=== PATIENT | female | born 1940 | race Caucasian/White ===

== ENCOUNTER → 2018-03-07 13:41 | Outpatient (CLI) | payer MEDICARE, SELFPAY | PROVIDERS: PCP Family Medicine; Visit Provider Family Medicine | DX: Z13.820 Encounter for screening for osteoporosis (principal); Z78.0 Asymptomatic menopausal state; Z82.62 Family history of osteoporosis; M06.9 Rheumatoid arthritis, unspecified | CPT/HCPCS: 77080 ==

== ENCOUNTER → 2019-07-04 10:35 | Outpatient (CLI) | payer MEDICARE, SELFPAY ==
--- NOTE | 2019-07-04 | DI.RAD.S_ITS ---
PROCEDURE: XR CHEST 2V INDICATIONS: COUGH TECHNIQUE: 2 views of the chest were acquired. COMPARISON: [facility], , CHEST 2 VIEW, 10/02/2013, 11:29. FINDINGS: Surgical changes and devices: None. Lungs and pleura: There is a poor thickening along the right lower hemithorax. There is a 7 mm nodule in the left midlung zone. No pleural effusions or pneumothorax. Mediastinum: Mediastinal contours are normal. Heart size is normal. Bones and chest wall: No suspicious bony abnormalities. Soft tissues appear unremarkable. IMPRESSION: 1. No acute cardiopulmonary disease. 2. Pleural thickening in the right lower hemithorax. 3. A 7 mm nodular density in the left midlung zone. A followup chest CT is suggested for further evaluation. Dictated by: Nelly Patel M.D. on 07/04/2019 at 11:19 Approved by: Nelly Patel M.D. on 07/04/2019 at 11:22
== END ==
PROVIDERS: PCP Family Medicine; Referring Provider Family Medicine; Visit Provider Family Medicine
DX: R05 Cough (principal); K21.9 Gastro-esophageal reflux disease without esophagitis; R91.1 Solitary pulmonary nodule
CPT/HCPCS: 71046

== ENCOUNTER → 2019-12-17 12:02 | Outpatient (CLI) | payer MEDICARE, SELFPAY ==
--- NOTE | 2019-12-17 | DI.CT.S_ITS ---
PROCEDURE: CT CHEST WO CON INDICATIONS: Pulmonary nodule seen on chest x-ray TECHNIQUE: Noncontrast 5 mm thick sections acquired from the pulmonary apices to the posterior costophrenic angles. 1 mm lung window, 5 mm thick coronal and sagittal and 7 mm axial MIP reformats were then acquired. For radiation dose reduction, the following was used: automated exposure control, adjustment of mA and/or kV according to patient size. COMPARISON: [facility], CR, XR CHEST 2V, 07/04/2019, 10:43. [facility], CT, CT ABDOMEN HEPATIC/ADRENAL PROTOCOL, 07/09/2019, 16:14. FINDINGS: Image quality: Excellent. Lungs and pleura: There are areas of lucency is in the left upper lobe and lower lobes. No acute air space opacities. There are multiple calcified pleural plaques bilaterally. No pleural effusions or pneumothorax. Central and peripheral airways are patent and normal in caliber. Mediastinum: Heart size is normal. No pericardial effusion. No mediastinal adenopathy by size criteria. Thoracic aorta and central pulmonary arteries are normal in size. Esophagus is normal in caliber. No hiatal hernia. Bones and chest wall: No suspicious bony lesions. No vertebral body compression fractures. No axillary or supraclavicular adenopathy by size criteria. Thyroid gland is normal . Abdomen: There are multiple hepatic cysts. The largest cyst is in the left hepatic lobe measuring 7 cm. Visualized upper abdominal solid organs and bowel loops appear normal in the absence of contrast. IMPRESSION: 1. No suspicious nodules are identified. The nodular density seen on chest x-ray may be caused by calcified pleural plaques. 2. Calcified pleural plaques bilaterally. Recommend correlation for asbestos exposure. 3. Lucencies are present in lungs bilaterally consistent with air trapping which is likely secondary to small airway disease. 4. Multiple hepatic cysts. Dictated by: Nelly Patel M.D. on 12/17/2019 at 16:27 Approved by: Nelly Patel M.D. on 12/17/2019 at 18:20
== END ==
PROVIDERS: PCP Family Medicine; Referring Provider Family Medicine; Visit Provider Family Medicine
DX: R91.1 Solitary pulmonary nodule (principal); J92.9 Pleural plaque without asbestos
CPT/HCPCS: 71250

== ENCOUNTER 2020-05-25 18:11 | Emergency (ER) | payer MEDICARE, SELFPAY ==
[2020-05-25] VITALS (12 sets, daily range): BP systolic 175–217; BP diastolic 85–106; PULSE 68–96; RESP 12–22; TEMP 36.3; O2SAT 92–97
--- NOTE | 2020-05-25 18:33 | DI.RAD.S_ITS ---
PROCEDURE: XR CHEST 1V INDICATIONS: chest pain TECHNIQUE: One view of the chest was acquired. COMPARISON: [facility], CR, XR CHEST 2V, 07/04/2019, 10:43. [facility], CR, CHEST 2 VIEW, 10/02/2013, 11:29. FINDINGS: Surgical changes and devices: None. Lungs and pleura: Lungs are again seen to be abnormal with a mild chronic interstitial prominence. No pleural effusions or pneumothorax. Mediastinum: Mediastinal contours appear normal. Heart size is normal considering reduced inspiration. Bones and chest wall: No suspicious bony lesions. Overlying soft tissues appear unremarkable. IMPRESSION: Mild interstitial prominence and reduced inspiratory volume, a definite source of chest pain is not seen. Dictated by: Akin Herrera M.D. on 05/25/2020 at 19:11 Approved by: Akin Herrera M.D. on 05/25/2020 at 19:11
[2020-05-25 19:00] LABS: Add Manual Diff / Slide Review NO; Basophils Absolute Auto 0 /uL (0-100); Basophils Percent Auto 0.6 % (0-2); Eosinophils Absolute Auto 100 /uL (0-450); Eosinophils Percent Auto 0.7 % (2-4); Hematocrit 43.4 % (36-46); Hemoglobin 14.8 g/dL (12.0-16.0); Lymphocytes Absolute Auto 1500 /uL (1100-4500); Lymphocytes Percent Auto 17.9 % (25-40); Mean Corpuscular HGB Conc 34.2 % (30-36); Mean Corpuscular Hemoglobin 34.1 PG (26-34); Mean Corpuscular Volume 99.9 fL (80-100); Monocytes Absolute Auto 1100 /uL (0-900); Monocytes Percent Auto 12.8 % (3-14); Neutrophils Absolute Auto 5700 /uL (1500-7000); Platelet Count 191 X10^3/uL (150-400); Red Blood Cell Count 4.34 X10^6/uL (4.0-5.2); Red Cell Distribution Width 14.2 % (11.6-14.8); White Blood Cell Count 8.4 X10^3/uL (4.5-11.0)
[2020-05-25 19:12] LABS: Creatine Kinase 98 U/L (30-135)
[2020-05-25 19:18] LABS: Chloride 106 mmol/L (98-107); Prothrombin Time 11.8 SECONDS (10.1-12.7)
[2020-05-25 19:19] LABS: PTT Partial Thromboplastin Tim 27 SECONDS (26.4-36.2)
[2020-05-25 19:24] LABS: Troponin I 0.014 ng/mL (0.01-0.034)
[2020-05-25 19:38] LABS: Alanine Aminotransferase 25 IU/L (<35); Albumin 3.9 g/dL (3.5-5.0); Albumin Globulin Ratio 1.4 (1.0-2.8); Alkaline Phosphatase 65 U/L (38-126); Aspartate Aminotransferase 32 IU/L (14-36); BUN Creatinine Ratio 22.6 (6-22); Bilirubin Total 0.5 mg/dL (0.2-1.3); Blood Urea Nitrogen 12 mg/dL (7-17); Calcium 9.4 mg/dL (8.4-10.2); Carbon Dioxide 29 mmol/L (22-32); Estimated Glomerular Filt Rate > 60.0 mL/min (>60); Globulin 2.8 g/dL (1.7-4.1); Glucose 94 mg/dL (80-110); HEMOLYSIS < 15 (0-50); Lipase 67 U/L (23-300); Potassium 4.1 mmol/L (3.4-5.1); Sodium 140 mmol/L (137-145); Total Protein 6.7 g/dL (6.3-8.2)
[2020-05-25] MEDS: KETOROLAC 60 MG/2 ML VIAL 15 MG IV (21:17)
--- NOTE | 2020-05-25 21:34 | ED_ITS ---
HPI - Abdominal Pain General Chief Complaint: Abdominal Pain Stated Complaint: Pleuritic RUQ pain. Time Seen by Provider: 05/25/20 21:01 Source: patient and old records reviewed (sent from Dr. Sánchez) Mode of arrival: Ambulatory Limitations: no limitations History of Present Illness HPI narrative: This is a pleasant 79-year-old female comes to the emergency department with complaint of abdominal pain. 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 Patient states worse with deep inspiration or cough. Patient states she has had a chronic cough for 20 years it is not worse doses unknown hepatic cyst that is 8 cm. Her physician sent her for concern for the cyst rupturing versus pleuritic chest pain. Fevers, no shortness of breath, no lightheadedness or passing out. Patient has not had any nasal congestion. Or productive cough. Patient states she has been having abdominal pain. She denies any radiation to the back, chest or lower in the abdomen. It has not changed location. She denies any back or flank pain. She denies any swelling her lower extremities. She denies any issues with bowel movements. She had a normal bowel movement yesterday, she has not had 1 today but has had flatus. No frequency, dysuria or urgency. She does have a history of rheumatoid arthritis and takes methotrexate, folic acid as well as fish oil twice daily. She has a known hiatal hernia as well as hepatic cysts. She has had multiple orthopedic surgeries as well as cholecystectomy. She lives with her Cheng on [facility]. Denies tobacco, 1-2 alcoholic drinks nightly with no illicit. Related Data Home Medications Medication Instructions Recorded Confirmed amlodipine [Norvasc] 5 mg PO QDAY #0 tab 11/20/15 Previous Rx's Medication Instructions Recorded omeprazole 20 mg PO QDAY #90 cap 03/25/16 citalopram 20 mg PO QDAY #90 tab 09/05/16 oxycodone 5 mg PO Q6H PRN #10 tab 05/25/20 Allergies Allergy/AdvReac Type Severity Reaction Status Date / Time latex [LATEX] Allergy Mild Verified 05/25/20 18:33 Sulfa (Sulfonamide Allergy Mild Verified 05/25/20 18:33 Antibiotics) [SULFA (SULFONAMIDE ANTIBIOTICS)] Review of Systems Review of Systems ROS Unobtainable: All systems reviewed & are unremarkable except as noted in HPI and below Patient History Medical History (Updated 05/25/20 @ 23:35 by Carlene Martinez DO) Rheumatoid arthritis Social History Smoking Status: Never smoker Smoking Status: Never smoker alcohol intake frequency: 0-2 drinks per day Substance Use Type: does not use Exam Narrative Exam Narrative: GENERAL: Alert and oriented x three, obese female in mild distress. HEENT: Head normocephalic, atraumatic, EOMI, pupils reactive, face symmetric, moist mucous membranes NECK: Supple, full range of motion CARDIOVASCULAR: Regular rate and rhythm without murmurs, rubs or gallops. RESPIRATORY: Breath sounds equal bilaterally, no wheezes rales or rhonchi. ABDOMEN: Soft, positive for epigastric and bilateral upper quadrant tenderness. Normoactive bowel sounds all 4 quadrants. No guarding or rebound, rigidity, no mass, no pulsatile mass or bruit. : No CVA tenderness EXTREMITIES: Normal range of motion, no clubbing or edema. Neurovascularly intact NEUROLOGICAL: Cranial nerves II through XII grossly intact. Moving all extremities SKIN: Warm, dry, no petechiae, no rashes or lesions. Initial Vital Signs Initial Vital Signs: Vital Signs Temperature 97.4 F L 05/25/20 18:20 Pulse Rate 96 H 05/25/20 18:20 Respiratory Rate 18 05/25/20 18:20 Blood Pressure 193/106 H 05/25/20 18:20 Pulse Oximetry 95 05/25/20 18:20 Course Orders Ordered: ED Orders 05/25/20 18:33 XR chest 1V Stat EKG-12 Lead Stat 05/25/20 18:43 Complete Blood Count AUTO DIFF Stat Comprehensive Metabolic Panel Stat Lipase Stat Partial Thromboplastin Time Stat Prothrombin Time INR Stat Troponin & CK Cardiac Panel Stat 05/25/20 21:47 CT abdomen pelvis w con Stat Discontinued Medications Ketorolac Tromethamine (Ketorolac 60 Mg/2 Ml Vial) 15 mg IV NOW ONE Stop: 05/25/20 21:13 Last Admin: 05/25/20 21:17 Dose: 15 mg Documented by: BRADLEY Oxycodone/Acetaminophen (Oxycodone/Apap 5/325 Prepack) 1 bottle MISC SEEINSTR ONE Stop: 05/25/20 23:29 Last Admin: 05/25/20 23:35 Dose: 1 bottle Documented by: Vital Signs Vital signs: Vital Signs - 8 hr 05/25/20 18:20 05/25/20 19:24 05/25/20 19:30 Temperature 97.4 F L Pulse Rate 96 H 68 73 Respiratory Rate 18 12 21 Blood Pressure 193/106 H 217/103 H Pulse Oximetry 95 97 96 05/25/20 20:00 05/25/20 20:43 05/25/20 21:00 Temperature Pulse Rate 69 80 77 Respiratory Rate 17 20 17 Blood Pressure Pulse Oximetry 96 96 05/25/20 21:07 05/25/20 21:30 05/25/20 22:00 Temperature Pulse Rate 79 83 Respiratory Rate 12 Blood Pressure 180/90 H Pulse Oximetry 94 94 05/25/20 22:30 05/25/20 23:00 05/25/20 23:35 Temperature Pulse Rate 77 80 Respiratory Rate 15 22 Blood Pressure 175/85 H Pulse Oximetry 92 92 MDM - Abdominal Pain Lab Data Attestation: I reviewed the patient's lab results. Result diagrams: 05/25/20 18:43 05/25/20 18:43 Labs: Lab Results 05/25/20 05/25/20 05/25/20 Range/Units 18:43 18:43 18:43 WBC 8.4 (4.5-11.0) X10^3/uL RBC 4.34 (4.0-5.2) X10^6/uL Hgb 14.8 (12.0-16.0) g/dL Hct 43.4 (36-46) % MCV 99.9 (80-100) fL MCH 34.1 H (26-34) PG MCHC 34.2 (30-36) % RDW 14.2 (11.6-14.8) % Plt Count 191 (150-400) X10^3/uL Neut % (Auto) 68.0 (50-75) % Lymph % (Auto) 17.9 L (25-40) % Woods % (Auto) 12.8 (3-14) % Eos % (Auto) 0.7 L (2-4) % Baso % (Auto) 0.6 (0-2) % Neut # (Auto) 5700 (5433-2795) /uL Lymph # (Auto) 1500 (0157-7342) /uL Woods # (Auto) 1100 H (0-900) /uL Eos # (Auto) 100 (0-450) /uL Baso # (Auto) 0 (0-100) /uL PT 11.8 (10.1-12.7) SECONDS INR 1.0 (0.9-1.3) APTT 27 (26.4-36.2) SECONDS Sodium 140 (137-145) mmol/L Potassium 4.1 (3.4-5.1) mmol/L Chloride 106 (98-107) mmol/L Carbon Dioxide 29 (22-32) mmol/L BUN 12 (7-17) mg/dL Creatinine 0.53 (0.52-1.04) mg/dL Estimated GFR > 60.0 (>60) mL/min BUN/Creatinine Ratio 22.6 H (6-22) Glucose 94 (80-110) mg/dL Calcium 9.4 (8.4-10.2) mg/dL Total Bilirubin 0.5 (0.2-1.3) mg/dL AST 32 (14-36) IU/L ALT 25 (<35) IU/L Alkaline Phosphatase 65 (38-126) U/L Total Creatine Kinase (30-135) U/L CK-MB (CK-2) CK-MB (CK-2) Rel Index Troponin I (0.01-0.034) ng/mL Total Protein 6.7 (6.3-8.2) g/dL Albumin 3.9 (3.5-5.0) g/dL Globulin 2.8 (1.7-4.1) g/dL Albumin/Globulin Ratio 1.4 (1.0-2.8) Lipase 67 (23-300) U/L 05/25/20 Range/Units 18:43 WBC (4.5-11.0) X10^3/uL RBC (4.0-5.2) X10^6/uL Hgb (12.0-16.0) g/dL Hct (36-46) % MCV (80-100) fL MCH (26-34) PG MCHC (30-36) % RDW (11.6-14.8) % Plt Count (150-400) X10^3/uL Neut % (Auto) (50-75) % Lymph % (Auto) (25-40) % Woods % (Auto) (3-14) % Eos % (Auto) (2-4) % Baso % (Auto) (0-2) % Neut # (Auto) (0285-2444) /uL Lymph # (Auto) (8587-5797) /uL Woods # (Auto) (0-900) /uL Eos # (Auto) (0-450) /uL Baso # (Auto) (0-100) /uL PT (10.1-12.7) SECONDS INR (0.9-1.3) APTT (26.4-36.2) SECONDS Sodium (137-145) mmol/L Potassium (3.4-5.1) mmol/L Chloride (98-107) mmol/L Carbon Dioxide (22-32) mmol/L BUN (7-17) mg/dL Creatinine (0.52-1.04) mg/dL Estimated GFR (>60) mL/min BUN/Creatinine Ratio (6-22) Glucose (80-110) mg/dL Calcium (8.4-10.2) mg/dL Total Bilirubin (0.2-1.3) mg/dL AST (14-36) IU/L ALT (<35) IU/L Alkaline Phosphatase (38-126) U/L Total Creatine Kinase 98 (30-135) U/L CK-MB (CK-2) TNP CK-MB (CK-2) Rel Index TNP Troponin I 0.014 (0.01-0.034) ng/mL Total Protein (6.3-8.2) g/dL Albumin (3.5-5.0) g/dL Globulin (1.7-4.1) g/dL Albumin/Globulin Ratio (1.0-2.8) Lipase (23-300) U/L Point of care testing: Urine Dip Bedside Urine Glucose Negative Bedside Urine Bilirubin - Negative Bedside Urine Ketone - Negative Urine Specific Deland 1.015 Bedside Urine Occult Blood - Negative Bedside Urine pH 6 Bedside Urine Protein - Negative Bedside Urine Urobilinogen - Negative Bedside Urine Nitrite - Negative Bedside Urine Leukocytes - Negative Esterase Imaging Data Chest x-ray: Radiologist's Impression: [address] [id number] ReportSigned Patient: Carisa Langley AMR#: [id number]: 3Acct:[id number]/Sex: 79 / FDate of Service: 05/25/20Loc: EDAccession Number: [id number] Procedure: XR chest 1V Ordering Provider: Carlene Martinez D.O. PROCEDURE: XR CHEST 1V INDICATIONS: chest pain TECHNIQUE: One view of the chest was acquired. COMPARISON: [facility], CR, XR CHEST 2V, 07/04/2019, 10:43. [facility], CR, CHEST 2 VIEW, 10/02/2013, 11:29. FINDINGS: Surgical changes and devices: None. Lungs and pleura: Lungs are again seen to be abnormal with a mild chronic interstitial prominence. No pleural effusions or pneumothorax. Mediastinum: Mediastinal contours appear normal. Heart size is normal considering reduced inspiration. Bones and chest wall: No suspicious bony lesions. Overlying soft tissues appear unremarkable. IMPRESSION: Mild interstitial prominence and reduced inspiratory volume, a definite source of chest pain is not seen. Dictated by: Akin Herrera M.D. on 05/25/2020 at 19:11 Approved by: Akin Herrera M.D. on 05/25/2020 at 19:11 CT scan - abdomen/pelvis: Radiologist's Impression: Mildly enlarged liver. Multiple cysts within liver most notably the lateral thigh measuring up to 8 cm. No suspicious liver lesion. Tortuous abdominal aorta of normal caliber. Mild sigmoid colon diverticulosis. Severe spondylosis of the visualized thoracolumbar spine. Midline epigastric hernia containing edematous fat through subcentimeter ventral wall defect, 12 cm. The umbilicus. Tiny umbilical fat containing hernia, d emonstrates mild edema which may reflect inflammation or ischemia. ECG Data Attestation: I personally reviewed and interpreted this ECG as follows: Interpretation: Sinus rhythm premature atrial complex, rate of 83, P are 162 QRS 82 QTC 472. Patient has similar EKG from 02/18/2008 which shows similar Q-waves in 3 and AVF. MDM Narrative Medical decision making narrative: 79-year-old female comes emergency department with acute pleuritic right upper quadrant abdominal pain. Patient is tender on palpation. Labs do not show acute findings. Patient is hypertensive in the department. Her abdominal pain is somewhat improved but not resolved. Imaging finds a small ventral hernia which is fat containing but no signs of bowel involvement or obstruction. Patient does have hepatic cysts which are still present and appear stable compared to her written CT results which were faxed to us. Patient's cardiac enzymes are negative with no clear EKG changes. Patient's labs are otherwise non contributory for other causes. Review today's findings with patient and her , plan for follow-up with primary care. Short course of pain medication, oxycodone was chosen as patient is on methotrexate and least interaction profile for pain control. Strict return precautions noted. Discharge Plan Departure Patient Disposition: Home Clinical Impression: Ventral hernia, Abdominal pain, Hepatic cyst Activity Restrictions/Additional Instructions: Your imaging today shows your hepatic cysts, there are multiple again and they appear stable. There is also a small fat containing ventral hernia 12cm above your umbilicus which I suspect is the cause of your pain. Follow-up with her physician for recheck. Take pain medication as prescribed. This medication can make you sleepy do not drive, perform hazardous activities or make any major decisions while taking it. Return to the ER for fevers, lightheadedness or passing out, persistent vomiting, increasing swelling pain or rapidly worsening symptoms in your abdomen inability to have a bowel movement, if you are not passing gas, black or bloody stools or other new or concerning symptoms. Prescriptions: New oxycodone 5 mg tablet 5 mg PO Q6H PRN (Reason: pain) Qty: 10 RF: 0 No Action amlodipine [Norvasc] 5 MG tablet 5 mg PO QDAY Qty: 0 RF: 0 omeprazole 20 MG capsule,delayed release(DR/EC) 20 mg PO QDAY Qty: 90 RF: 3 citalopram 20 MG tablet 20 mg PO QDAY Qty: 90 RF: 1 Referrals: Yuriy Diaz MD [Primary Care Provider] -
--- NOTE | 2020-05-25 21:47 | DI.CT.S_ITS ---
PROCEDURE: CT ABDOMEN PELVIS W CON INDICATIONS: RUQ/epigastric pain, hx multiple hepatic cysts. max 7.5/7.3 TECHNIQUE: After the administration of intravenous contrast, 5 mm thick sections acquired from the diaphragm to the symphysis. 5 mm coronal and sagittal reformats were acquired. For radiation dose reduction, the following was used: automated exposure control, adjustment of mA and/or kV according to patient size. COMPARISON: [facility], CT, CT ABDOMEN HEPATIC/ADRENAL PROTOCOL, 07/09/2019, 16:14. FINDINGS: Image quality: Excellent. ABDOMEN: Lung bases: Lung bases are clear. Heart size is normal. Solid organs: Multiple cysts are seen throughout the liver, the largest measures 8.7 x 7.3 x 8.8 cm located in the left lateral section of the liver, which is increased in size when compared to the CT from 07/09/2019. Gallbladder is surgically absent. Biliary system is non dilated. Pancreas enhances normally. Spleen is normal in size and enhancement. No adrenal nodules. Kidneys demonstrate normal size and enhancement, without hydronephrosis. Peritoneum and bowel: Bowel loops demonstrate normal wall thickness and caliber. There is a small hiatal hernia. At least 1 diverticulum is seen in the sigmoid colon without signs of acute diverticulitis. Normal appendix. No free fluid or air. Nodes and vessels: No retroperitoneal or mesenteric adenopathy by size criteria. Aorta and inferior vena cava are normal in size. Miscellaneous: There is a small fat containing periumbilical hernia. Additionally, a tiny fat containing ventral hernia is seen in the midline upper abdomen with abdominal wall defect measuring 5 x 7 mm. PELVIS: Genitourinary: Bladder wall thickness is normal. The uterus is normal in size. No abnormal adnexal mass is seen. Miscellaneous: No inguinal hernias or adenopathy. Bones: No suspicious bony lesions. No vertebral body compression fractures. Multilevel degenerative changes are seen in the included portions of the spine. IMPRESSION: 1. Multiple hepatic cysts are seen, the largest of which measures up to 8.8 cm in maximum dimension and has increased in size when compared to the CT from 07/09/2019. 2. Small ventral hernia in the midline epigastric region with neck measuring 5 x 7 mm and a trace amount of surrounding fat stranding, which can be associated with pain. A small nonedematous periumbilical hernia is present. 3. Small hiatal hernia. There is no significant discrepancy when compared to the overnight Teleradiology report. Dictated by: Eben Smiley M.D. on 05/26/2020 at 8:09 Approved by: Eben Smiley M.D. on 05/26/2020 at 8:20
[2020-05-25] MEDS: OXYCODONE/APAP 5/325 PREPACK 1 BOTTLE MISC (23:35)
== END 2020-05-25 23:41 | disposition home or self-care (01) ==
PROVIDERS: Emergency Provider Emergency Medicine; PCP Family Medicine
DX: K43.9 Ventral hernia without obstruction or gangrene (principal); R10.11 Right upper quadrant pain; K76.89 Other specified diseases of liver; R05 Cough; E66.9 Obesity, unspecified; R07.9 Chest pain, unspecified
CPT/HCPCS: 36415; 71045; 74177; 80053; 81003; 82550; 83690; 84484; 85025; 85610; 85730; 93005; 96374; 99283; 99284; J1885; Q9967

== ENCOUNTER → 2020-06-09 09:54 | Outpatient (CLI) | payer MEDICARE, SELFPAY ==
[2020-06-09 10:26] LABS: COVID19 -Nasal RAPID Negative (Negative)
== END ==
PROVIDERS: PCP Family Medicine; Visit Provider Surgery
DX: Z01.812 Encounter for preprocedural laboratory examination (principal); Z20.822 Contact with and (suspected) exposure to COVID-19
CPT/HCPCS: 87635; C9803

== ENCOUNTER 2020-06-10 07:52 | Day surgery (SDC) | payer MEDICARE, SELFPAY ==
[2020-06-10] VITALS (11 sets, daily range): BP systolic 114–166; BP diastolic 67–100; PULSE 75–89; RESP 11–20; TEMP 36.5–36.6; O2SAT 96–98; BMI 34.4
--- NOTE | 2020-06-10 08:41 | PM.PREOP ---
Pre-operative Note COVID-19 COVID-19 status: Negative Result date/Date tested (Pos, Neg/Pending): 06/09/20 Interval Note History & Physical reviewed/Exam performed by Physician: Yes Changes to H&P: No
[2020-06-10] MEDS: LACTATED RINGERS 1,000 ML 100 ML IV (08:50)
[2020-06-10] MEDS: CEFAZOLIN 2 GM/100 ML FROZ.PIGGY IV (08:52)
--- NOTE | 2020-06-10 09:12 | SUR.OPER ---
Supine on padded OR bed, head on pillow, arms secured on padded arm boards at <90 degrees abduction, legs uncrossed, safety belt at thigh.
[2020-06-10] MEDS: BUPIVACAINE 0.5% W/ EPI (PF) 30 ML VIAL INJ (09:15)
[2020-06-10] MEDS: BUPIVACAINE LIPOSOME 266 MG/20 ML VIAL INJ (09:29)
--- NOTE | 2020-06-10 09:51 | P.OP_ITS ---
Operative Date/Time/Diagnoses Date of procedure: 06/10/20 Time of procedure: 09:51 Pre-op diagnosis: ventral incisional hernia Post-op diagnosis: same Procedure & Clinicians Procedure: Open ventral hernia repair with mesh Same procedure as scheduled: Yes Indications: Ventral incisional hernia Surgeon: Esperanza Mosley Click Yes if Unassisted: Yes Anesthesia Type: General Operative Notes Findings: ventral incisional hernia at the site of prior open cholecystectomy Specimen(s): none sent Prosthetic devices, grafts, tissues, transplants, or devices: BARD ventralex 4.3cm mesh Estimated Blood Loss (mL): 1 Procedure in detail: The patient was brought to the operating room, placed supine on the operating table, and sequential compression devices were placed on both legs and turned on. Appropriate perioperative antibiotics were given. General anesthesia was induced by the anesthesiologist and the patient was intubated with an LMA. The abdomen was then prepped and draped in sterile fashion, and a surgical time-out was conducted. At this point local anesthetic was injected using 0.5% Marcaine with epi, at the site of the planned incision. An oblique 6cm incision was then made in the skin at the site of the prior cholecystectomy incision. Dissection was then carried down through the dermis and subcutaneous tissue, until the hernia sac was encountered. I dissected circumferentially around the hernia sac, and identified its neck. The hernia sac was not reducible through the defect. I opened the sac with Metzenbaum scissors and it was found to contain incarcerated omentum. The incarcerated tissue was divided using cautery, with good hemostasis. The stump of the remaining tissue was then reducible and was placed back into the abdomen below the defect. The divided omentum was passed off the field. The hernia defect was 1 cm in diameter. A 4.3cm BARD Ventralex mesh was brought into the field and placed into the defect, between the peritoneum and the fascia. It was then sutured to the fascia in four corners using 2-0 PDS suture. I then closed the defect with 2-0PDS figure of eights. I then injected the fascia with 20mL of 0.25% Marcaine with epi, and 20mL of Exparel in small aliquots. I then covered the sutures with subcutaneous fat bringing it together with 3-0 Vicryl suture, and closed the skin with subcuticular Monocryl 4-0. The skin edges were then sealed with Dermabond. This concluded the procedure. The elsa ent was awakened from anesthesia and extubated. [facility]. The patient was then transferred to the postanesthesia care unit in stable condition. She tolerated the procedure well. Needle sponge and instrument counts were correct x2 at the end of the case. Complications: none Post-operative Condition: stable Disposition: PACU
[2020-06-10] MEDS: OXYCODONE/ACETAMINOPHEN 5/325 TABLET 1 TAB PO (10:22)
--- NOTE | 2020-06-10 11:03 | SUR.PHASEII ---
Pt met discharge criteria: VSS, denied pain or nausea, able to drink fluids & eat snack without difficulty. R upper abdominal surgical site C/D/I. Pain pill given with snack @ 1035. Discharge instructions discussed, all questions answered. [place] [place] requested quick discharge. No problems to report.
== END 2020-06-10 11:00 | disposition home or self-care (01) ==
PROVIDERS: PCP Family Medicine; Referring Provider Surgery; Visit Provider Surgery
PROC: (CPT 49560; principal; 2020-06-10 08:45)
DX: K43.2 Incisional hernia without obstruction or gangrene (principal); Z87.19 Personal history of other diseases of the digestive system; Z98.890 Other specified postprocedural states; K21.9 Gastro-esophageal reflux disease without esophagitis; M06.9 Rheumatoid arthritis, unspecified; K44.9 Diaphragmatic hernia without obstruction or gangrene; E66.9 Obesity, unspecified; Z68.35 Body mass index [BMI] 35.0-35.9, adult
CPT/HCPCS: 49560; 49568; C1781; C9290; J0330; J0690; J1100; J2405; J2704; J3010

== ENCOUNTER → 2020-12-02 10:24 | Outpatient (CLI) | payer MEDICARE, SELFPAY ==
[2020-12-02 11:23] LABS: Add Manual Diff / Slide Review NO; Basophils Absolute Auto 0 /uL (0-100); Basophils Percent Auto 0.5 % (0-2); Eosinophils Absolute Auto 100 /uL (0-450); Eosinophils Percent Auto 1.9 % (2-4); Hematocrit 42.6 % (36-46); Hemoglobin 14.1 g/dL (12.0-16.0); Lymphocytes Absolute Auto 1400 /uL (1100-4500); Lymphocytes Percent Auto 23.3 % (25-40); Mean Corpuscular HGB Conc 33.1 % (30-36); Mean Corpuscular Hemoglobin 33.4 PG (26-34); Mean Corpuscular Volume 100.9 fL (80-100); Monocytes Absolute Auto 600 /uL (0-900); Monocytes Percent Auto 9.3 % (3-14); Neutrophils Absolute Auto 3900 /uL (1500-7000); Platelet Count 195 X10^3/uL (150-400); Red Blood Cell Count 4.22 X10^6/uL (4.0-5.2); Red Cell Distribution Width 13.7 % (11.6-14.8); White Blood Cell Count 5.9 X10^3/uL (4.5-11.0)
[2020-12-02 11:45] LABS: Erythrocyte Sedimentation Rate 10 MM/HR (0-20)
[2020-12-02 12:07] LABS: Alanine Aminotransferase 20 IU/L (<35); Albumin 3.9 g/dL (3.5-5.0); Albumin Globulin Ratio 1.3 (1.0-2.8); Alkaline Phosphatase 61 U/L (38-126); Aspartate Aminotransferase 31 IU/L (14-36); Bilirubin Total 0.4 mg/dL (0.2-1.3); Blood Urea Nitrogen 15 mg/dL (7-17); C-Reactive Protein Quant < 0.5 mg/dL (<1.0); Calcium 9.8 mg/dL (8.4-10.2); Carbon Dioxide 24 mmol/L (22-32); Chloride 108 mmol/L (98-107); Estimated Glomerular Filt Rate > 60.0 mL/min (>60); Globulin 2.9 g/dL (1.7-4.1); Glucose 95 mg/dL (80-110); HEMOLYSIS < 15 (0-50); Potassium 4.6 mmol/L (3.4-5.1); Sodium 139 mmol/L (137-145); Total Protein 6.8 g/dL (6.3-8.2)
== END ==
PROVIDERS: PCP Family Medicine; Referring Provider Internal Medicine Rheumatology; Visit Provider Internal Medicine Rheumatology
DX: M06.09 Rheumatoid arthritis without rheumatoid factor, multiple sites (principal)
CPT/HCPCS: 36415; 80053; 85025; 85651; 86140

== ENCOUNTER → 2021-02-23 11:35 | Outpatient (CLI) | payer MEDICARE, SELFPAY ==
[2021-02-23 19:13] LABS: Add Manual Diff / Slide Review NO; Basophils Absolute Auto 0 /uL (0-100); Basophils Percent Auto 0.8 % (0-2); Eosinophils Absolute Auto 100 /uL (0-450); Eosinophils Percent Auto 2.1 % (2-4); Hemoglobin 14.1 g/dL (12.0-16.0); Lymphocytes Absolute Auto 1300 /uL (1100-4500); Lymphocytes Percent Auto 26.7 % (25-40); Mean Corpuscular HGB Conc 33.6 % (30-36); Mean Corpuscular Hemoglobin 33.3 PG (26-34); Mean Corpuscular Volume 99.2 fL (80-100); Monocytes Absolute Auto 500 /uL (0-900); Monocytes Percent Auto 9.9 % (3-14); Neutrophils Absolute Auto 2900 /uL (1500-7000); Neutrophils Percent Auto 60.5 % (50-75); Platelet Count 188 X10^3/uL (150-400); Red Blood Cell Count 4.23 X10^6/uL (4.0-5.2); Red Cell Distribution Width 14.3 % (11.6-14.8); White Blood Cell Count 4.7 X10^3/uL (4.5-11.0)
[2021-02-23 19:27] LABS: Alanine Aminotransferase 20 IU/L (<35); Albumin 3.9 g/dL (3.5-5.0); Albumin Globulin Ratio 1.6 (1.0-2.8); Alkaline Phosphatase 49 U/L (38-126); Aspartate Aminotransferase 31 IU/L (14-36); BUN Creatinine Ratio 17.3 (6-22); Bilirubin Total 0.7 mg/dL (0.2-1.3); Blood Urea Nitrogen 14 mg/dL (7-17); C-Reactive Protein Quant < 0.5 mg/dL (<1.0); Calcium 9.3 mg/dL (8.4-10.2); Carbon Dioxide 26 mmol/L (22-32); Chloride 103 mmol/L (98-107); Estimated Glomerular Filt Rate > 60.0 mL/min (>60); Globulin 2.5 g/dL (1.7-4.1); Glucose 97 mg/dL (80-110); HEMOLYSIS < 15 (0-50); Potassium 4.3 mmol/L (3.4-5.1); Sodium 137 mmol/L (137-145); Total Protein 6.4 g/dL (6.3-8.2)
[2021-02-23 19:30] LABS: Erythrocyte Sedimentation Rate 11 MM/HR (0-20)
== END ==
PROVIDERS: PCP Family Medicine; Visit Provider Internal Medicine Rheumatology
DX: M06.09 Rheumatoid arthritis without rheumatoid factor, multiple sites (principal)
CPT/HCPCS: 80053; 85025; 85651; 86140

== ENCOUNTER → 2021-07-09 13:34 | Outpatient (CLI) | payer MEDICARE, SELFPAY ==
[2021-07-09 18:20] LABS: Add Manual Diff / Slide Review NO; Basophils Absolute Auto 0 /uL (0-100); Basophils Percent Auto 0.7 % (0-2); Eosinophils Absolute Auto 100 /uL (0-450); Eosinophils Percent Auto 1.8 % (2-4); Hematocrit 39.4 % (36-46); Hemoglobin 13.5 g/dL (12.0-16.0); Lymphocytes Absolute Auto 1900 /uL (1100-4500); Lymphocytes Percent Auto 36.7 % (25-40); Mean Corpuscular HGB Conc 34.2 % (30-36); Mean Corpuscular Hemoglobin 34.3 PG (26-34); Mean Corpuscular Volume 100.2 fL (80-100); Monocytes Absolute Auto 700 /uL (0-900); Monocytes Percent Auto 13.1 % (3-14); Neutrophils Absolute Auto 2500 /uL (1500-7000); Neutrophils Percent Auto 47.7 % (50-75); Platelet Count 191 X10^3/uL (150-400); Red Blood Cell Count 3.93 X10^6/uL (4.0-5.2); Red Cell Distribution Width 14.4 % (11.6-14.8); White Blood Cell Count 5.2 X10^3/uL (4.5-11.0)
[2021-07-09 18:30] LABS: Alanine Aminotransferase 16 IU/L (<35); Albumin 3.8 g/dL (3.5-5.0); Albumin Globulin Ratio 1.5 (1.0-2.8); Alkaline Phosphatase 47 U/L (38-126); Aspartate Aminotransferase 30 IU/L (14-36); BUN Creatinine Ratio 16.3 (6-22); Bilirubin Total 0.4 mg/dL (0.2-1.3); Blood Urea Nitrogen 13 mg/dL (7-17); C-Reactive Protein Quant < 0.5 mg/dL (<1.0); Calcium 8.7 mg/dL (8.4-10.2); Carbon Dioxide 27 mmol/L (22-32); Chloride 106 mmol/L (98-107); Estimated Glomerular Filt Rate > 60.0 mL/min (>60); Globulin 2.6 g/dL (1.7-4.1); Glucose 92 mg/dL (80-110); HEMOLYSIS < 15 (0-50); Potassium 3.9 mmol/L (3.4-5.1); Sodium 138 mmol/L (137-145); Total Protein 6.4 g/dL (6.3-8.2)
[2021-07-09 18:48] LABS: Erythrocyte Sedimentation Rate 11 MM/HR (0-20)
== END ==
PROVIDERS: Student in an Organized Health Care Education/Training Program; PCP Family Medicine
DX: M06.00 Rheumatoid arthritis without rheumatoid factor, unspecified site (principal)
CPT/HCPCS: 80053; 85025; 85651; 86140

== ENCOUNTER → 2021-11-12 12:07 | Outpatient (CLI) | payer MEDICARE, SELFPAY ==
[2021-11-12 19:05] LABS: Add Manual Diff / Slide Review NO; Basophils Absolute Auto 0 /uL (0-100); Basophils Percent Auto 0.7 % (0-2); Eosinophils Absolute Auto 100 /uL (0-450); Eosinophils Percent Auto 2.6 % (2-4); Hemoglobin 13.3 g/dL (12.0-16.0); Lymphocytes Absolute Auto 1300 /uL (1100-4500); Lymphocytes Percent Auto 28.9 % (25-40); Mean Corpuscular HGB Conc 34.1 % (30-36); Mean Corpuscular Hemoglobin 34.1 PG (26-34); Mean Corpuscular Volume 99.9 fL (80-100); Monocytes Absolute Auto 400 /uL (0-900); Monocytes Percent Auto 8.7 % (3-14); Neutrophils Absolute Auto 2700 /uL (1500-7000); Neutrophils Percent Auto 59.1 % (50-75); Platelet Count 192 X10^3/uL (150-400); Red Cell Distribution Width 14.5 % (11.6-14.8); White Blood Cell Count 4.6 X10^3/uL (4.5-11.0)
[2021-11-12 19:26] LABS: Alanine Aminotransferase 16 IU/L (<35); Albumin 3.9 g/dL (3.5-5.0); Albumin Globulin Ratio 1.6 (1.0-2.8); Alkaline Phosphatase 55 U/L (38-126); Aspartate Aminotransferase 30 IU/L (14-36); BUN Creatinine Ratio 20.7 (6-22); Bilirubin Total 0.5 mg/dL (0.2-1.3); Blood Urea Nitrogen 19 mg/dL (7-17); C-Reactive Protein Quant < 0.5 mg/dL (<1.0); Calcium 8.9 mg/dL (8.4-10.2); Carbon Dioxide 28 mmol/L (22-32); Chloride 102 mmol/L (98-107); Estimated Glomerular Filt Rate > 60 mL/min (>60); Globulin 2.5 g/dL (1.7-4.1); Glucose 81 mg/dL (80-110); HEMOLYSIS < 15 (0-50); Potassium 4.4 mmol/L (3.4-5.1); Sodium 134 mmol/L (137-145); Total Protein 6.4 g/dL (6.3-8.2)
[2021-11-12 20:41] LABS: Erythrocyte Sedimentation Rate 7 MM/HR (0-20)
== END ==
PROVIDERS: PCP Family Medicine
DX: M06.9 Rheumatoid arthritis, unspecified (principal); Z96.659 Presence of unspecified artificial knee joint
CPT/HCPCS: 80053; 85025; 85651; 86140

== ENCOUNTER → 2022-02-24 12:08 | Outpatient (CLI) | payer MEDICARE, SELFPAY ==
--- NOTE | 2022-02-24 12:10 | DI.MRI.S_ITS ---
PROCEDURE: MR SHOULDER LT WO CON INDICATIONS: Impingement syndrome of left shoulder TECHNIQUE: Noncontrast oblique coronal T2 fast spin echo with fat saturation, oblique sagittal T1 spin echo and T2 fast spin echo with fat saturation, axial T1 spin echo and T2 fast spin echo with fat saturation through the shoulder. COMPARISON: None. FINDINGS: Image quality: Excellent. Rotator cuff: There is suggestion of focal full-thickness perforation involving most posterior fibers of distal supraspinatus at its insertion on the humeral head without significant retraction of torn tendon fibers. Low-grade articular and bursal surface partial-thickness tear involving rest of the supraspinatus tendon is seen extending to musculotendinous junction. Distal infraspinatus tendinosis is seen. Distal subscapularis tendinosis and low-grade partial-thickness tear in its superior to mid fibers is seen. Sagittal images demonstrate no significant muscle atrophy. Bones and bursae: No bone marrow contusions or fractures. Subcortical cystic area are seen involving anterior and lateral aspect of humeral head near rotator cuff tendon insertion. Moderate acromioclavicular joint osteoarthritic changes are seen with downward osteophyte formation depressing the musculotendinous junction of supraspinatus. Mild to moderate glenohumeral joint osteoarthritic changes also noted with joint space narrowing and subchondral sclerosis. There is small to moderate amount of subacromial subdeltoid bursal fluid. Capsule and soft tissues: Signal abnormality and contour irregularity involving superior anterior labrum at 12 to 1 o'clock position is seen suggestive of superior anterior labral tear. Similar signal abnormality involving anterior inferior labrum at 5 to 6 o'clock position is also noted. The long head of the biceps tendon appears thickened. The rotator interval appears normal, without fibrosis. The coracohumeral ligament is normal in thickness. IMPRESSION: 1. Low to moderate grade articular and bursal surface partial thickness tear involving distal supraspinatus extending to musculotendinous junction with focal full-thickness perforation involving most posterior fibers of distal supraspinatus at its insertion on the humeral head. Distal infraspinatus tendinosis. Low-grade partial-thickness tear involving superior to mid fibers of distal subscapularis. No significant muscle atrophy. 2. Moderate acromioclavicular joint and glenohumeral joint osteoarthritis. No fracture or dislocation. Small to moderate subacromial subdeltoid bursal fluid. 3. Suggestion of subtle superior anterior labral tear at 12 to 1 o'clock position and anterior-inferior labral tear at 5 to 6 o'clock position. 4. Proximal intra-articular portion of long head of biceps tendinosis. Dictated by: Barak Box M.D. on 02/24/2022 at 14:31 Approved by: Barak Box M.D. on 02/24/2022 at 14:36
== END ==
PROVIDERS: PCP Family Medicine; Referring Provider Physical Medicine & Rehabilitation Pain Medicine; Visit Provider Physical Medicine & Rehabilitation Pain Medicine
DX: M75.112 Incomplete rotator cuff tear or rupture of left shoulder, not specified as traumatic (principal); M19.012 Primary osteoarthritis, left shoulder; M75.42 Impingement syndrome of left shoulder
CPT/HCPCS: 73221

== ENCOUNTER → 2022-03-07 14:53 | Outpatient (CLI) | payer MEDICARE, SELFPAY ==
[2022-03-07 19:29] LABS: Add Manual Diff / Slide Review NO; Basophils Absolute Auto 100 /uL (0-100); Basophils Percent Auto 0.9 % (0-2); Eosinophils Absolute Auto 200 /uL (0-450); Eosinophils Percent Auto 3.1 % (2-4); Hematocrit 41.4 % (36-46); Lymphocytes Absolute Auto 1500 /uL (1100-4500); Lymphocytes Percent Auto 26.2 % (25-40); Mean Corpuscular HGB Conc 33.8 % (30-36); Mean Corpuscular Hemoglobin 33.9 PG (26-34); Mean Corpuscular Volume 100.5 fL (80-100); Monocytes Absolute Auto 500 /uL (0-900); Neutrophils Absolute Auto 3600 /uL (1500-7000); Neutrophils Percent Auto 60.8 % (50-75); Platelet Count 178 X10^3/uL (150-400); Red Blood Cell Count 4.12 X10^6/uL (4.0-5.2); Red Cell Distribution Width 14.6 % (11.6-14.8); White Blood Cell Count 5.9 X10^3/uL (4.5-11.0)
[2022-03-07 19:33] LABS: Alanine Aminotransferase 23 IU/L (<35); Albumin 4.2 g/dL (3.5-5.0); Albumin Globulin Ratio 1.4 (1.0-2.8); Alkaline Phosphatase 70 U/L (38-126); Aspartate Aminotransferase 34 IU/L (14-36); BUN Creatinine Ratio 21.6 (6-22); Bilirubin Total 0.6 mg/dL (0.2-1.3); Blood Urea Nitrogen 19 mg/dL (7-17); Calcium 9.3 mg/dL (8.4-10.2); Carbon Dioxide 29 mmol/L (22-32); Chloride 104 mmol/L (98-107); Estimated Glomerular Filt Rate > 60 mL/min (>60); Glucose 100 mg/dL (80-110); HEMOLYSIS < 15 (0-50); Potassium 4.1 mmol/L (3.4-5.1); Sodium 139 mmol/L (137-145); Total Protein 7.2 g/dL (6.3-8.2)
== END ==
PROVIDERS: Internal Medicine Rheumatology; PCP Family Medicine; Visit Provider Internal Medicine Rheumatology
DX: Z79.899 Other long term (current) drug therapy (principal); M05.79 Rheumatoid arthritis with rheumatoid factor of multiple sites without organ or systems involvement
CPT/HCPCS: 80053; 85025

== ENCOUNTER → 2022-08-18 09:33 | Outpatient (CLI) | payer MEDICARE, SELFPAY ==
[2022-08-18 20:13] LABS: Cholesterol 225 mg/dL (140-199); Glucose 90 mg/dL (80-110); Triglycerides 51 mg/dL (35-150)
[2022-08-18 20:29] LABS: HDL Cholesterol 132 mg/dL (40-60); LDL Cholesterol Calculated 83 mg/dL (<100)
[2022-08-19 16:23] LABS: Hep C Virus Ab w/Reflex Quant NEGATIVE s/c (NEGATIVE)
== END ==
PROVIDERS: PCP Family Medicine; Visit Provider Family Medicine
DX: Z00.00 Encounter for general adult medical examination without abnormal findings (principal); Z13.1 Encounter for screening for diabetes mellitus; E66.9 Obesity, unspecified; Z11.59 Encounter for screening for other viral diseases; Z12.31 Encounter for screening mammogram for malignant neoplasm of breast; Z13.220 Encounter for screening for lipoid disorders
CPT/HCPCS: 80061; 82947; 86803

== ENCOUNTER → 2023-01-25 10:08 | Outpatient (CLI) | payer MEDICARE, SELFPAY ==
[2023-01-25 20:10] LABS: Add Manual Diff / Slide Review NO; Basophils Absolute Auto 0 /uL (0-100); Basophils Percent Auto 0.7 % (0-2); Eosinophils Absolute Auto 100 /uL (0-450); Eosinophils Percent Auto 2.8 % (2-4); Hemoglobin 13.8 g/dL (12.0-16.0); Lymphocytes Absolute Auto 1100 /uL (1100-4500); Lymphocytes Percent Auto 22.6 % (25-40); Mean Corpuscular HGB Conc 33.6 % (30-36); Mean Corpuscular Volume 104.2 fL (80-100); Monocytes Absolute Auto 300 /uL (0-900); Monocytes Percent Auto 6.9 % (3-14); Neutrophils Absolute Auto 3200 /uL (1500-7000); Platelet Count 220 X10^3/uL (150-400); Red Blood Cell Count 3.93 X10^6/uL (4.0-5.2); Red Cell Distribution Width 14.7 % (11.6-14.8); White Blood Cell Count 4.8 X10^3/uL (4.5-11.0)
[2023-01-25 20:15] LABS: Alanine Aminotransferase 23 IU/L (<35); Albumin 3.9 g/dL (3.5-5.0); Albumin Globulin Ratio 1.3 (1.0-2.8); Alkaline Phosphatase 56 U/L (38-126); Aspartate Aminotransferase 31 IU/L (14-36); BUN Creatinine Ratio 17.5 (6-22); Bilirubin Total 0.6 mg/dL (0.2-1.3); Blood Urea Nitrogen 14 mg/dL (7-17); Calcium 9.9 mg/dL (8.4-10.2); Carbon Dioxide 29 mmol/L (22-32); Chloride 102 mmol/L (98-107); Estimated Glomerular Filt Rate > 60 mL/min (>60); Globulin 2.9 g/dL (1.7-4.1); Glucose 92 mg/dL (80-110); HEMOLYSIS < 15 (0-50); Potassium 3.7 mmol/L (3.4-5.1); Sodium 138 mmol/L (137-145); Total Protein 6.8 g/dL (6.3-8.2)
== END ==
PROVIDERS: Internal Medicine Rheumatology; PCP Family Medicine
DX: M05.79 Rheumatoid arthritis with rheumatoid factor of multiple sites without organ or systems involvement (principal); Z79.899 Other long term (current) drug therapy
CPT/HCPCS: 80053; 85025

== ENCOUNTER → 2023-04-11 14:43 | Outpatient (CLI) | payer MEDICARE, SELFPAY ==
[2023-04-11 20:18] LABS: Add Manual Diff / Slide Review NO; Basophils Absolute Auto 0 /uL (0-100); Basophils Percent Auto 0.8 % (0-2); Eosinophils Absolute Auto 200 /uL (0-450); Eosinophils Percent Auto 5.9 % (2-4); Hemoglobin 13.5 g/dL (12.0-16.0); Lymphocytes Absolute Auto 1100 /uL (1100-4500); Lymphocytes Percent Auto 34.4 % (25-40); Mean Corpuscular HGB Conc 33.8 % (30-36); Mean Corpuscular Hemoglobin 34.2 PG (26-34); Monocytes Absolute Auto 500 /uL (0-900); Neutrophils Absolute Auto 1400 /uL (1500-7000); Neutrophils Percent Auto 43.9 % (50-75); Platelet Count 171 X10^3/uL (150-400); Red Blood Cell Count 3.96 X10^6/uL (4.0-5.2); Red Cell Distribution Width 13.6 % (11.6-14.8); White Blood Cell Count 3.3 X10^3/uL (4.5-11.0)
[2023-04-11 20:25] LABS: Alanine Aminotransferase 51 IU/L (<35); Albumin Globulin Ratio 1.3 (1.0-2.8); Alkaline Phosphatase 71 U/L (38-126); Aspartate Aminotransferase 94 IU/L (14-36); BUN Creatinine Ratio 11.9 (6-22); Bilirubin Total 0.6 mg/dL (0.2-1.3); Blood Urea Nitrogen 8 mg/dL (7-17); Calcium 9.2 mg/dL (8.4-10.2); Carbon Dioxide 29 mmol/L (22-32); Chloride 102 mmol/L (98-107); Estimated Glomerular Filt Rate > 60 mL/min (>60); Globulin 3.2 g/dL (1.7-4.1); Glucose 95 mg/dL (80-110); HEMOLYSIS 17 (0-50); Potassium 3.7 mmol/L (3.4-5.1); Sodium 134 mmol/L (137-145); Total Protein 7.2 g/dL (6.3-8.2)
== END ==
PROVIDERS: PCP Family Medicine; Visit Provider Internal Medicine Rheumatology
DX: M06.00 Rheumatoid arthritis without rheumatoid factor, unspecified site (principal); Z79.899 Other long term (current) drug therapy
CPT/HCPCS: 80053; 85025

== ENCOUNTER → 2023-07-03 14:35 | Outpatient (CLI) | payer MEDICARE, SELFPAY ==
[2023-07-03 19:14] LABS: Add Manual Diff / Slide Review NO; Basophils Absolute Auto 0 /uL (0-100); Basophils Percent Auto 0.5 % (0-2); Eosinophils Absolute Auto 100 /uL (0-450); Hematocrit 38.5 % (36-46); Lymphocytes Absolute Auto 1900 /uL (1100-4500); Mean Corpuscular HGB Conc 33.9 % (30-36); Mean Corpuscular Hemoglobin 33.4 PG (26-34); Mean Corpuscular Volume 98.5 fL (80-100); Monocytes Absolute Auto 600 /uL (0-900); Monocytes Percent Auto 10.8 % (3-14); Neutrophils Absolute Auto 2700 /uL (1500-7000); Neutrophils Percent Auto 51.7 % (50-75); Platelet Count 208 X10^3/uL (150-400); White Blood Cell Count 5.3 X10^3/uL (4.5-11.0)
[2023-07-03 19:30] LABS: Erythrocyte Sedimentation Rate 11 MM/HR (0-20)
[2023-07-03 19:34] LABS: Alanine Aminotransferase 25 IU/L (<35); Albumin 3.7 g/dL (3.5-5.0); Albumin Globulin Ratio 1.3 (1.0-2.8); Alkaline Phosphatase 58 U/L (38-126); Aspartate Aminotransferase 31 IU/L (14-36); BUN Creatinine Ratio 16.7 (6-22); Bilirubin Total 0.5 mg/dL (0.2-1.3); Blood Urea Nitrogen 14 mg/dL (7-17); C-Reactive Protein Quant < 0.5 mg/dL (<1.0); Calcium 8.7 mg/dL (8.4-10.2); Carbon Dioxide 27 mmol/L (22-32); Chloride 110 mmol/L (98-107); Estimated Glomerular Filt Rate > 60 mL/min (>60); Globulin 2.8 g/dL (1.7-4.1); Glucose 97 mg/dL (80-110); HEMOLYSIS < 15 (0-50); Sodium 139 mmol/L (137-145); Total Protein 6.5 g/dL (6.3-8.2)
== END ==
PROVIDERS: PCP Family Medicine; Visit Provider Internal Medicine Rheumatology
DX: M05.79 Rheumatoid arthritis with rheumatoid factor of multiple sites without organ or systems involvement (principal); Z79.899 Other long term (current) drug therapy
CPT/HCPCS: 80053; 85025; 85651; 86140

== ENCOUNTER → 2024-02-05 14:25 | Outpatient (CLI) | payer MEDICARE, SELFPAY ==
[2024-02-05 19:36] LABS: Add Manual Diff / Slide Review NO; Basophils Absolute Auto 0 /uL (0-100); Basophils Percent Auto 0.3 % (0-2); Eosinophils Absolute Auto 100 /uL (0-450); Eosinophils Percent Auto 1.1 % (2-4); Hematocrit 40.7 % (36-46); Hemoglobin 13.6 g/dL (12.0-16.0); Lymphocytes Absolute Auto 2300 /uL (1100-4500); Lymphocytes Percent Auto 23.3 % (25-40); Mean Corpuscular HGB Conc 33.4 % (30-36); Mean Corpuscular Hemoglobin 33.6 PG (26-34); Mean Corpuscular Volume 100.3 fL (80-100); Monocytes Absolute Auto 800 /uL (0-900); Monocytes Percent Auto 8.4 % (3-14); Neutrophils Absolute Auto 6600 /uL (1500-7000); Neutrophils Percent Auto 66.9 % (50-75); Platelet Count 247 X10^3/uL (150-400); Red Blood Cell Count 4.06 X10^6/uL (4.0-5.2); Red Cell Distribution Width 15.1 % (11.6-14.8); White Blood Cell Count 9.9 X10^3/uL (4.5-11.0)
[2024-02-05 19:43] LABS: Alanine Aminotransferase 28 IU/L (<35); Albumin 3.6 g/dL (3.5-5.0); Albumin Globulin Ratio 1.2 (1.0-2.8); Alkaline Phosphatase 60 U/L (38-126); Aspartate Aminotransferase 26 IU/L (14-36); BUN Creatinine Ratio 26.5 (6-22); Bilirubin Total 0.7 mg/dL (0.2-1.3); Blood Urea Nitrogen 22 mg/dL (7-17); Calcium 9.2 mg/dL (8.4-10.2); Carbon Dioxide 27 mmol/L (22-32); Chloride 103 mmol/L (98-107); Estimated Glomerular Filt Rate > 60 mL/min (>60); Globulin 2.9 g/dL (1.7-4.1); Glucose 106 mg/dL (80-110); HEMOLYSIS < 15 (0-50); Potassium 3.8 mmol/L (3.4-5.1); Sodium 135 mmol/L (137-145); Total Protein 6.5 g/dL (6.3-8.2)
== END ==
PROVIDERS: Internal Medicine Rheumatology; PCP Family Medicine
DX: M06.00 Rheumatoid arthritis without rheumatoid factor, unspecified site (principal); Z79.899 Other long term (current) drug therapy
CPT/HCPCS: 80053; 85025

== ENCOUNTER → 2024-06-26 14:07 | Outpatient (CLI) | payer MEDICARE, SELFPAY ==
[2024-06-26 20:20] LABS: Add Manual Diff / Slide Review NO; Basophils Absolute Auto 0 /uL (0-100); Basophils Percent Auto 0.3 % (0-2); Eosinophils Absolute Auto 100 /uL (0-450); Eosinophils Percent Auto 0.9 % (2-4); Hematocrit 40.3 % (36-46); Hemoglobin 13.6 g/dL (12.0-16.0); Lymphocytes Absolute Auto 600 /uL (1100-4500); Lymphocytes Percent Auto 8.8 % (25-40); Mean Corpuscular HGB Conc 33.8 % (30-36); Mean Corpuscular Hemoglobin 34.3 PG (26-34); Mean Corpuscular Volume 101.4 fL (80-100); Monocytes Absolute Auto 400 /uL (0-900); Monocytes Percent Auto 6.4 % (3-14); Neutrophils Absolute Auto 5400 /uL (1500-7000); Neutrophils Percent Auto 83.6 % (50-75); Platelet Count 192 X10^3/uL (150-400); Red Blood Cell Count 3.98 X10^6/uL (4.0-5.2); Red Cell Distribution Width 14.2 % (11.6-14.8); White Blood Cell Count 6.5 X10^3/uL (4.5-11.0)
[2024-06-26 20:36] LABS: Alanine Aminotransferase 24 IU/L (<35); Albumin 4.1 g/dL (3.5-5.0); Albumin Globulin Ratio 1.6 (1.0-2.8); Alkaline Phosphatase 59 U/L (38-126); Aspartate Aminotransferase 39 IU/L (14-36); BUN Creatinine Ratio 15.5 (6-22); Bilirubin Total 0.6 mg/dL (0.2-1.3); Blood Urea Nitrogen 11 mg/dL (7-17); Calcium 8.8 mg/dL (8.4-10.2); Carbon Dioxide 26 mmol/L (22-32); Chloride 103 mmol/L (98-107); Estimated Glomerular Filt Rate > 60 mL/min (>60); Globulin 2.6 g/dL (1.7-4.1); Glucose 95 mg/dL (80-110); HEMOLYSIS 37 (0-50); Potassium 4.2 mmol/L (3.4-5.1); Sodium 138 mmol/L (137-145); Total Protein 6.7 g/dL (6.3-8.2)
== END ==
PROVIDERS: PCP Family Medicine; Visit Provider Internal Medicine Rheumatology
DX: M06.00 Rheumatoid arthritis without rheumatoid factor, unspecified site (principal); Z79.899 Other long term (current) drug therapy
CPT/HCPCS: 80053; 85025

== ENCOUNTER → 2024-10-04 10:55 | Outpatient (CLI) | payer MEDICARE, SELFPAY ==
--- NOTE | 2024-10-04 10:56 | DI.RAD.S_ITS ---
PROCEDURE: XR DEXA AXIAL SKELETON INDICATIONS: hx osteoarthritis COMPARISON: 03/07/2018. FINDINGS: Lumbar Spine: Bone mineral density 1.226 g/cm2, T score 1.6, previously 2.1. Left Femoral Neck: Bone mineral density is 0.923 g/cm2, T score 0.7. Left Hip: Bone mineral density 0.983 g/cm2, T score 0.3, previously 1.2. Fracture Risk Calculation (when applicable): 10-year fracture risk of a major osteoporotic fracture 8.9 percent and of a hip fracture 1.1 percent. (T score greater or equal to -1.0 to: NORMAL) (T score from -1.1 to -2.4: OSTEOPENIA) (T score less than or equal to -2.5: OSTEOPOROSIS) IMPRESSION: Normal bone mineralization Follow-up guidelines as follows: Osteoporosis: Consider a repeat DEXA and Vertebral Fracture Assessment (VFA) exam in 2 years or sooner if medically necessary, to reassess this patient's status. Osteopenia: Consider a repeat DEXA in 2-3 years to reassess this patient's status, or if there is a new clinical indication. Normal: Consider a repeat DEXA in 5 years or sooner, or if there is a new clinical indication. All treatment decisions require clinical judgment and consideration of individual patient factors, including patient preferences, comorbidities, previous drug use, risk factors not captured in the FRAX model (e.g., frailty, falls, vitamin D deficiency, increased bone turnover, interval significant decline in bone density ) and possible under- or over-estimation of fracture risk by FRAX. In addition, the NOF Guide recommends that FDA-approved medical therapies be considered in postmenopausal women and men age >= 50 years with a: * Hip or vertebral (clinical or morphometric) fracture * T-score of <=-2.5 at the spine or hip * Ten-year fracture probability by FRAX of >= 3% for hip fracture or >=20% for major osteoporotic fracture. Approved by: Pramod Merino M.D. on 10/04/2024 at 15:00
== END ==
PROVIDERS: PCP Family Medicine; Referring Provider Family Medicine; Visit Provider Family Medicine
DX: M05.79 Rheumatoid arthritis with rheumatoid factor of multiple sites without organ or systems involvement (principal); Z78.0 Asymptomatic menopausal state; M19.90 Unspecified osteoarthritis, unspecified site
CPT/HCPCS: 77080

== ENCOUNTER → 2024-10-22 11:30 | Outpatient (CLI) | payer MEDICARE, SELFPAY ==
[2024-10-22 21:02] LABS: Add Manual Diff / Slide Review NO; Hematocrit 42.0 % (36-46); Hemoglobin 13.9 g/dL (12.0-16.0); Lymphocytes Absolute Auto 1400 /uL (1100-4500); Mean Corpuscular HGB Conc 33.1 % (30-36); Mean Corpuscular Hemoglobin 34.2 PG (26-34); Mean Corpuscular Volume 103.3 fL (80-100); Platelet Count 233 X10^3/uL (150-400)
[2024-10-22 21:14] LABS: Alanine Aminotransferase 18 IU/L (<35); Albumin 4.2 g/dL (3.5-5.0); Albumin Globulin Ratio 1.5 (1.0-2.8); Alkaline Phosphatase 71 U/L (38-126); Blood Urea Nitrogen 10 mg/dL (7-17); Calcium 9.4 mg/dL (8.4-10.2); Carbon Dioxide 21 mmol/L (22-32); Chloride 103 mmol/L (98-107); Estimated Glomerular Filt Rate > 60 mL/min (>60); Globulin 2.8 g/dL (1.7-4.1); Glucose 87 mg/dL (70-99); HEMOLYSIS < 15 (0-50); Potassium 4.5 mmol/L (3.4-5.1); Sodium 134 mmol/L (137-145); Total Protein 7.0 g/dL (6.3-8.2)
== END ==
PROVIDERS: PCP Family Medicine; Visit Provider Internal Medicine Rheumatology
DX: M06.09 Rheumatoid arthritis without rheumatoid factor, multiple sites (principal); Z79.899 Other long term (current) drug therapy
CPT/HCPCS: 80053; 85025; 85651; 86140

== ENCOUNTER 2025-02-11 13:37 | Emergency (ER) | payer MEDICARE, SELFPAY ==
[2025-02-11 13:41] VITALS: BP 183/85; PULSE 83; RESP 17; TEMP 36.4; O2SAT 97; BMI 32.5
--- NOTE | 2025-02-11 13:47 | DI.RAD.S_ITS ---
PROCEDURE: XR KNEE LT 3V INDICATIONS: intermittent stabbing pain TECHNIQUE: 3 views of the knee were acquired. COMPARISON: None. FINDINGS: Bones: No fractures or dislocations. No suspicious bony lesions. Normal alignment of the left knee arthroplasty. No evidence of tear prosthesis fracture or loosening. Soft tissues: No joint effusion. No suspicious soft tissue calcifications. IMPRESSION: No acute fracture. Normal alignment of the left knee arthroplasty with expected postoperative changes. Dictated by: Karen Bustillos M.D. on 02/11/2025 at 14:40 Approved by: Karen Bustillos M.D. on 02/11/2025 at 14:42
--- NOTE | 2025-02-11 15:26 | ED_ITS ---
HPI - Extremity Injury (Lower) <Bethany Burgess PA-C - Last Filed: 02/11/25 17:33> General Chief Complaint: Extremity Injury, Lower Stated Complaint: Left knee pain x 1 day Time Seen by Provider: 02/11/25 13:51 Source: patient Mode of arrival: Ambulatory History of Present Illness HPI Narrative: 84-year-old female presents to the ED with 1 day of left-sided knee pain. Patient has had 2 surgeries for knee replacements on that knee. Patient states that she was doing some bridge exercises for pelvic floor strengthening yesterday. Patient states that her knee pain started in the middle of the night, patient describes it as a sharp pain in the area of the kneecap. No numbness, tingling, weakness. Patient is able to bear weight and walk. Related Data Home Medications ?Medication ?Instructions ?Recorded ?Confirmed mecobalamin (vitamin B12) 5,000 5,000 mcg PO DAILY 01/1209/12/24 mcg lozenge omega-3 fatty acids 1,000 mg 1,000 mg PO BID 06/02/20 09/12/24 capsule (Fish Oil Concentrate) pyridoxine (vitamin B6) 25 mg 100 mg PO DAILY 06/02/20 09/12/24 tablet B-12 Plus 2,500 mcg PO DAILY 06/10/20 09/12/24 Caltrate 600 600 mg PO BID 06/10/2009/12 Multi Vitamin 1 tab PO DAILY 06/10/2008/23 cholecalciferol (vitamin D3) 25 25 mcg PO DAILY 09/12/24 mcg (1,000 unit) capsule folic acid 800 mcg tablet 1,000 mcg PO BID 04/06/23 methotrexate sodium 2.5 mg tablet 2.5 mg PO 6XW 09/12/24 Previous Rx's ?Medication ?Instructions ?Recorded mometasone-formoterol HFA 200 2 puff inhalation BID #1 3 grams 02/14/24 mcg-5 mcg/actuation aerosol inhaler (Dulera) citalopram 20 mg tablet 20 mg PO DAILY #90 tabs 11/15 omeprazole 20 mg capsule,delayed See Rx Instructions . Route 04/30/24 release .COMPLEX #180 caps conjugated estrogens 0.625 mg/gram 0.625 mg vaginal .t wice weekly #60 10/29/24 vaginal cream (Premarin) grams tirzepatide (weight loss) 7.5 7.5 mg (0.5 mL) SUBCUT Q WEEK #2 mL 11/20/24 mg/0.5 mL subcutaneous solution tramadol 50 mg tablet 50 mg PO Q6H PRN pain #14 ta bs 02/11/25 Allergies Allergy/AdvReac Type Severity Reaction Status Date / Time latex (LATEX) AdvReac Intermediate Blister Verified 02/11/25 13:41 Sulfa (Sulfonamide AdvReac Intermediate Blister Verified 02/11/25 13:41 Antibiotics) (SULFA (SULFONAMIDE ANTIBIOTICS)) Review of Systems <Bethany Brugess PA-C - Last Filed: 02/11/25 17:33> Constitutional Constitutional: Denies chills, Denies fatigue, Denies fever(s), Denies frequent falls, Denies lethargy and Denies weakness Eyes Eyes: Denies change in vision, Denies eye discharge, Denies irritation and Denies loss of vision ENT Ears, Nose, Mouth, and Throat: Denies change in voice, Denies dizziness, Denies neck pain, Denies sore throat and Denies throat swelling Cardiovascular Cardiovascular: Denies chest pain, Denies irregular heart rhythm, Denies lightheadedness, Denies palpitations, Denies dyspnea, Denies dyspnea on exertion and Denies orthopnea Respiratory Respiratory: Denies cough, Denies dyspnea, Denies dyspnea on exertion and Denies wheezing Gastrointestinal Gastrointestinal: Denies abdominal pain, Denies change in bowel habits, Denies diarrhea, Denies nausea and Denies vomiting Musculoskeletal Musculoskeletal: Denies neck pain and Denies numbness Comments: Left knee pain Integumentary/Breasts Skin/Breast: Denies pruritus, Denies erythema, Denies rash and Denies wounds Neurologic Neurologic: Denies behavioral changes, Denies confusion, Denies dizziness, Denies frequent falls, Denies loss of vision, Denies numbness and Denies weakness Psychiatric Psychiatric: Denies anxiety, Denies behavioral changes, Denies confusion, Denies depression, Denies homicidal ideation and Denies suicidal ideation Endocrine Endocrine: Denies fatigue, Denies flushing and Denies palpitations Hematologic/Lymphatic Hematologic/Lymphatic: Denies easy bruising Allergic/Immunologic Allergic/Immunologic: Denies urticaria, Denies throat swelling and Denies wheezing Patient History <Bethany Burgess PA-C - Last Filed: 02/11/25 17:33> Medical History Benign breast cyst in female PAC (premature atrial contraction) Hx of basal cell carcinoma Hepatic cyst Surgical History Hx of carpal tunnel repair Hx of shoulder surgery Hx of total knee replacement Hx of cholecystectomy Family History Mother Gallstones Social History marital status: household members: spouse occupational status: previously employed Smoking Status: Never smoker alcohol intake: current substance use type: does not use Smoking Status: Never smoker alcohol intake frequency: 0-2 drinks per day Exam <Bethany Burgess PA-C - Last Filed: 02/11/25 17:33> Narrative Exam Narrative: Const General:?cooperative, healthy appearing and comfortable [facility] Head:?normal to inspection Ears:?hearing grossly normal bilaterally Nose:?external nose normal Face and sinus:?normal facial exam and sinuses nontender Mouth:?oral mucosae normal Throat:?posterior oropharynx normal Eyes General:?appearance normal, both eyes and all related structures Neck Neck:?normal visual inspection and no lymphadenopathy noted Resp Effort & Inspection:?normal respiratory effort Auscultation:?clear to auscultation bilaterally Cardio Rate:?regular rate Rhythm:?regular rhythm Musculoskeletal Left knee without swelling, bruising, tenderness to palpation. Full range of motion. Gait is normal. Neurovascularly intact. Neuro General:?patient alert, patient awake and patient oriented x3 Initial Vital Signs Initial Vital Signs: Vital Signs Temperature 97.6 F 02/11/25 13:41 Pulse Rate 83 02/11/25 13:41 Respiratory Rate 17 02/11/25 13:41 Blood Pressure 183/85 H 02/11/25 13:41 Pulse Oximetry 97 02/11/25 13:41 Oxygen Delivery Method Room Air 02/11/25 13:41 <Carlene Martinez DO - Last Filed: 02/11/25 23:29> Initial Vital Signs Initial Vital Signs: Vital Signs Temperature 97.6 F 02/11/25 13:41 Pulse Rate 83 02/11/25 13:41 Respiratory Rate 17 02/11/25 13:41 Blood Pressure 183/85 H 02/11/25 13:41 Pulse Oximetry 97 02/11/25 13:41 Oxygen Delivery Method Room Air 02/11/25 13:41 Course <Bethany Burgess PA-C - Last Filed: 02/11/25 17:33> Orders Ordered: ED Orders 02/11/25 13:47 XR knee LT 3V Stat Vital Signs Vital signs: Vital Signs - 8 hr 02/11/25 16:37 Pulse Rate 78 Respiratory Rate 17 Blood Pressure 181/88 H Pulse Oximetry 96 Oxygen Delivery Method Room Air <Carlene Martinez DO - Last Filed: 02/11/25 23:29> Orders Ordered: ED Orders 02/11/25 13:47 XR knee LT 3V Stat Vital Signs Vital signs: Vital Signs - 8 hr 02/11/25 16:37 Pulse Rate 78 Respiratory Rate 17 Blood Pressure 181/88 H Pulse Oximetry 96 Oxygen Delivery Method Room Air MDM - Extremity Injury (Lower) <Bethany Burgess PA-C - Last Filed: 02/11/25 17:33> MDM Narrative Medical decision making narrative: 84-year-old female presents to the ED with 1 day of left-sided knee pain. X-ray was obtained which shows no acute fracture. Normal alignment of the left knee arthroplasty with expected postop changes. On exam, the knee is not swollen, no bruising and there is full range of motion. No tenderness to palpation. Discussed with patient that this is most consistent with a knee sprain/overuse injury. Recommend patient abstain from the bridge exercises which are putting too much strain on her knees. Recommend that she seek alternative exercises. Patient was prescribed some pain medications since Tylenol was not helping. ED return precautions were discussed with patient. Patient verbalized understanding. Medical records reviewed: Yes Discharge Plan Departure Patient Disposition: Home Clinical Impression: Acute knee pain Qualifiers: Laterality: left Qualified Code(s): M25.562 - Pain in left knee Instructions: DI for Knee Pain Activity Restrictions/Additional Instructions: You were evaluated in the emergency department today for left-sided knee pain. Your x-ray was normal. You are being prescribed some pain medication to take for the next 2-3 days. Please be aware that this medication can make you sleepy so please exercise good fall precautions. Please follow-up with your PCP as soon as possible. Return to the ED if you have worsening symptoms, numbness, tingling, weakness. Prescriptions: New tramadol 50 mg tablet 50 mg PO Q6H PRN (Reason: pain) Qty: 14 0RF No Action citalopram 20 mg tablet 20 mg PO DAILY Qty: 90 3RF omeprazole 20 mg capsule,delayed release(DR/EC) See Rx Instructions .ROUTE .COMPLEX Qty: 180 3RF Dose Instruction: TAKE 1 TO 2 CAPSULES BY MOUTH DAILY Rx Instructions: TAKE 1 TO 2 CAPSULES BY MOUTH DAILY Premarin 0.625 mg/gram cream 0.625 mg vaginal .twice weekly Qty: 60 3RF tirzepatide (weight loss) 7.5 mg/0.5 mL solution 7.5 mg SUBCUT QWEEK Qty: 2 1RF omega-3 fatty acids [Fish Oil Concentrate] 1,000 mg capsule 1,000 mg PO BID pyridoxine (vitamin B6) 25 mg tablet 100 mg PO DAILY mecobalamin (vitamin B12) 5,000 mcg lozenge 5,000 mcg PO DAILY Rx Instructions: allow to dissolve in mouth OR may chew lightly before swallowing B-12 Plus 2,500 mcg PO DAILY Caltrate 600 600 mg PO BID Multi Vitamin 1 tab PO DAILY methotrexate sodium 2.5 mg tablet 2.5 mg PO 6XW cholecalciferol (vitamin D3) 25 mcg (1,000 unit) capsule 25 mcg PO DAILY folic acid 800 mcg tablet 1,000 mcg PO BID Dulera 200-5 mcg/actuation HFA aerosol inhaler 2 puff inhalation BID Qty: 13 0RF Referrals: Earl Dangelo MD [Primary Care Provider, Family Practice] Stand Alone Forms: Patient Portal/API ED Sign-out <Carlene Martinez DO - Last Filed: 02/11/25 23:29> Cosign ED Attending Cosignature Attestation: I was immediately available in the department for consultation.
[2025-02-11 16:37] VITALS: BP 181/88; PULSE 78; RESP 17; O2SAT 96
== END 2025-02-11 16:38 | disposition home or self-care (01) ==
PROVIDERS: Emergency Provider Student in an Organized Health Care Education/Training Program; PCP Family Medicine
DX: M25.562 Pain in left knee (principal)
CPT/HCPCS: 73562; 99281; 99283

== ENCOUNTER → 2025-02-27 10:17 | Outpatient (CLI) | payer MEDICARE, SELFPAY ==
[2025-02-27 19:08] LABS: Add Manual Diff / Slide Review NO; Hematocrit 40.0 % (36-46); Hemoglobin 13.6 g/dL (12.0-16.0); Lymphocytes Absolute Auto 1100 /uL (1100-4500); Mean Corpuscular HGB Conc 34.1 % (30-36); Mean Corpuscular Hemoglobin 34.4 PG (26-34); Mean Corpuscular Volume 100.8 fL (80-100); Platelet Count 264 X10^3/uL (150-400)
[2025-02-27 19:16] LABS: Blood Urea Nitrogen 10 mg/dL (7-17); Calcium 9.0 mg/dL (8.4-10.2); Carbon Dioxide 24 mmol/L (22-32); Chloride 104 mmol/L (98-107); Cholesterol 219 mg/dL (140-199); Estimated Glomerular Filt Rate > 60 mL/min (>60); Glucose 92 mg/dL (70-99); HDL Cholesterol 107 mg/dL (40-60); HEMOLYSIS < 15 (0-50); Potassium 4.6 mmol/L (3.4-5.1); Sodium 134 mmol/L (137-145); Triglycerides 52 mg/dL (35-150)
[2025-02-27 19:43] LABS: Thyroid Stimulating Hormone 2.24 uIU/mL (0.47-4.68)
[2025-02-27 20:02] LABS: Vitamin B12 948 pg/mL (239-931)
== END ==
PROVIDERS: PCP Family Medicine; Visit Provider Family Medicine
DX: Z13.6 Encounter for screening for cardiovascular disorders (principal); Z13.1 Encounter for screening for diabetes mellitus; F32.9 Major depressive disorder, single episode, unspecified; I10 Essential (primary) hypertension
CPT/HCPCS: 80048; 80061; 82607; 84443; 85025

== ENCOUNTER → 2025-04-03 13:11 | Outpatient (CLI) | payer MEDICARE, SELFPAY ==
[2025-04-03 19:16] LABS: Add Manual Diff / Slide Review NO; Hematocrit 38.9 % (36-46); Hemoglobin 13.3 g/dL (12.0-16.0); Lymphocytes Absolute Auto 1400 /uL (1100-4500); Mean Corpuscular HGB Conc 34.2 % (30-36); Mean Corpuscular Hemoglobin 34.6 PG (26-34); Mean Corpuscular Volume 101.3 fL (80-100); Platelet Count 223 X10^3/uL (150-400)
[2025-04-03 19:27] LABS: Alanine Aminotransferase 39 IU/L (<35); Albumin 4.3 g/dL (3.5-5.0); Albumin Globulin Ratio 1.5 (1.0-2.8); Alkaline Phosphatase 46 U/L (38-126); Blood Urea Nitrogen 9 mg/dL (7-17); Calcium 8.9 mg/dL (8.4-10.2); Carbon Dioxide 24 mmol/L (22-32); Chloride 104 mmol/L (98-107); Estimated Glomerular Filt Rate > 60 mL/min (>60); Globulin 2.8 g/dL (1.7-4.1); Glucose 86 mg/dL (70-99); Potassium 4.9 mmol/L (3.4-5.1); Sodium 135 mmol/L (137-145); Total Protein 7.1 g/dL (6.3-8.2)
[2025-04-03 19:32] LABS: HEMOLYSIS 207 (0-50)
== END ==
PROVIDERS: PCP Family Medicine; Visit Provider Internal Medicine Rheumatology
DX: M06.00 Rheumatoid arthritis without rheumatoid factor, unspecified site (principal); Z79.899 Other long term (current) drug therapy
CPT/HCPCS: 80053; 85025; 85651; 86140

== ENCOUNTER → 2025-04-08 08:59 | Outpatient (CLI) | payer MEDICARE, SELFPAY ==
[2025-04-08 18:39] LABS: Add Manual Diff / Slide Review NO; Hematocrit 38.5 % (36-46); Hemoglobin 13.2 g/dL (12.0-16.0); Lymphocytes Absolute Auto 1100 /uL (1100-4500); Mean Corpuscular HGB Conc 34.4 % (30-36); Mean Corpuscular Hemoglobin 34.9 PG (26-34); Mean Corpuscular Volume 101.5 fL (80-100); Platelet Count 209 X10^3/uL (150-400)
[2025-04-08 18:58] LABS: Cholesterol 191 mg/dL (140-199); HDL Cholesterol 97 mg/dL (40-60); Triglycerides 55 mg/dL (35-150)
== END ==
PROVIDERS: PCP Family Medicine; Visit Provider Family Medicine
DX: G45.9 Transient cerebral ischemic attack, unspecified (principal)
CPT/HCPCS: 80061; 85025